=== PATIENT | female | born 1940 ===

== ENCOUNTER 2018-03-26 08:52 | Day surgery (SDC) | payer MEDICARE ==
[2018-03-26] MEDS ORDERED: Lactated Ringer's 1,000 ML IV ONE (10:11)
[2018-03-26] MEDS ORDERED: Propofol 10 mg/ml Inj (20 ML) ONE ×2 (10:21→10:50)
[2018-03-26] MEDS ORDERED: Lidocaine Hydrochloride 5 ML INJ ONE (10:24)
[2018-03-26 11:30] VITALS: TEMP 96
[2018-03-26 11:36] VITALS: RESP 18
[2018-03-26 11:51] VITALS: O2SAT 97
[2018-03-26 12:01] VITALS: BP 140/75; PULSE 65
== END 2018-03-26 12:00 | disposition home or self-care (01) ==
LOC: C.ENDO 08:52
PROVIDERS: ATTEND Internal Medicine Gastroenterology
DX: D12.2 Benign neoplasm of ascending colon (principal); D12.0 Benign neoplasm of cecum; D12.8 Benign neoplasm of rectum; K57.32 Diverticulitis of large intestine without perforation or abscess without bleeding; E78.5 Hyperlipidemia, unspecified; E11.9 Type 2 diabetes mellitus without complications; I10 Essential (primary) hypertension
CPT/HCPCS: 45380; 45385; 82948; 88305; J2704; J7120